=== PATIENT | male | born 1970 | race Caucasian/White ===

== ENCOUNTER 2020-07-28 15:06 | Emergency (ER) | payer MEDICAID ==
[~2020-07-28] VITALS: Ht 182.9 cm; Wt 84.0 kg
[~2020-07-28 15:06] MED LIST: AMPH20TA3 PO; OMEP40CA13 PO; ONDA4TAB12 PO
[2020-07-28] MEDS ORDERED: CefTRIAXone 250MG IM Kit w/LIDOcaine IM ONE (16:05)
[2020-07-28] MEDS ORDERED: azithromycin 250mg tablet PO ONE (16:05)
[2020-07-28 16:34] VITALS: BP 130/100
== END 2020-07-28 16:27 | disposition home or self-care (01) ==
LOC: ER 15:07
DX: Z20.2 Contact with and (suspected) exposure to infections with a predominantly sexual mode of transmission (principal); F12.90 Cannabis use, unspecified, uncomplicated; Z87.442 Personal history of urinary calculi; Z98.890 Other specified postprocedural states; Z79.899 Other long term (current) drug therapy
CPT/HCPCS: 96372; 99283; J0696

== ENCOUNTER 2021-03-12 16:47 | Inpatient (IN) | payer MEDICAID, OTHER ==
[~2021-03-12] VITALS: Ht 182.9 cm; Wt 81.8 kg
[~2021-03-12 16:47] MED LIST changes: -OMEP40CA13 PO; +OMEP40CA21 PO
[2021-03-12] MEDS ORDERED: normal saline 1000ML IV soln IVB ONE ×2 (18:30→22:25)
[2021-03-12] MEDS ORDERED: ondansetron/PF 4mg/2ml inj IV ONE (18:30)
[2021-03-12] MEDS ORDERED: vancomycin/NS 1 GM ADD-VANTAGE 250 ML IV ONE (18:30)
[2021-03-12] MEDS ORDERED: fentaNYL/PF 50MCG/1 ML 2ML syringe IV ONE (18:30)
[2021-03-12] MEDS ORDERED: CefTRIAXone 2gm/D5W 50ml BAG 50 ML IV ONE (18:30)
[2021-03-12] MEDS ORDERED: iohexol 300mg/ml 100ml inj. ONE (18:32)
[2021-03-12 19:49] LABS: PARTIAL THROMBOPLASTIN TIME 28 SECONDS (22-32)
[2021-03-12 19:50] LABS: BASOPHILS % (AUTO) 0.2 % (0-1); EOSINOPHILS % (AUTO) 0.2 % (0-6); HEMATOCRIT 39.7 % (42.0-52.0); HEMOGLOBIN 13.5 g/dl (14.0-17.9); LYMPHOCYTES # (AUTO) 1.3 X10'3 (1.1-4.8); LYMPHOCYTES % (AUTO) 11.3 % (21-51); MEAN CORPUSCULAR HEMOGLOBIN 29.4 PG (27.0-31.0); MEAN CORPUSCULAR HGB CONC 34.1 g/dL (33.0-36.5); MEAN CORPUSCULAR VOLUME 86.3 FL (78-98); MEAN PLATELET VOLUME 9.8 FL (7.4-10.4); MONOCYTES % (AUTO) 8.5 % (2-12); NEUTROPHILS # (AUTO) 9.5 X10'3 (1.8-7.7); NEUTROPHILS % (AUTO) 79.8 % (42-75); PLATELET COUNT 320 X10'3 (140-440); RED CELL DISTRIBUTION WIDTH 13.5 % (11.5-14.5); WHITE BLOOD COUNT 11.9 X10'3 (4.5-11.0)
[2021-03-12 19:52] LABS: ALANINE AMINOTRANSFERASE 71 U/L (12-78); ALBUMIN 3.4 G/DL (3.4-5.0); ALKALINE PHOSPHATASE 66 IU/L (46-116); ANION GAP 10 (8-16); ASPARTATE AMINO TRANSFERASE 108 U/L (10-37); BILIRUBIN,TOTAL 0.8 MG/DL (0.1-1.0); BLOOD UREA NITROGEN 12 MG/DL (7-18); CALCIUM 8.5 MG/DL (8.5-10.1); CHLORIDE 105 MMOL/L (99-107); GLUCOSE 105 MG/DL (70-104); POTASSIUM 3.5 MMOL/L (3.5-5.1); SODIUM 142 MMOL/L (135-145); TOTAL CARBON DIOXIDE 26.6 MMOL/L (24-32); TOTAL PROTEIN 6.9 G/DL (6.4-8.2); eGFR > 90 ML/MIN
[2021-03-12 20:27] LABS: TROPONIN I < 0.04 NG/ML (0.0-0.05)
[2021-03-12 20:29] LABS: CKMB RELATIVE INDEX 0.2 RATIO (0-2.5); CREATINE KINASE 4199 U/L (39-308)
[2021-03-12] MEDS ORDERED: temazepam 15mg capsule PO PRN (21:00)
[2021-03-12] MEDS ORDERED: magnesium hydroxide 30ml (MOM) UD suspension PO PRN (22:00)
[2021-03-12] MEDS ORDERED: HYDROcodone/acetaminophen 5mg/325mg tablet PO PRN (22:00)
[2021-03-12] MEDS ORDERED: diphenhydrAMINE 50 mg/ml inj IV PRN (22:00)
[2021-03-12] MEDS ORDERED: ondansetron/PF 4mg/2ml inj IV PRN (22:00)
[2021-03-12] MEDS ORDERED: HYDROmorphone inj. 0.5 MG/0.5 ML DISP.SYRIN IV PRN (22:00)
[2021-03-12] MEDS ORDERED: morphine 2 MG/ML inj. syringe IV PRN ×2 (22:00)
[2021-03-12] MEDS ORDERED: acetaminophen 325mg tablet PO PRN ×2 (22:00)
[2021-03-12] MEDS ORDERED: acetaminophen 650mg rectal suppository RC PRN (22:00)
[2021-03-12] MEDS ORDERED: bisacodyl 10mg suppository rectal RC PRN (22:00)
[2021-03-12] MEDS ORDERED: ondansetron 4mg rapidly disintigrating tab PO PRN (22:00)
[2021-03-12] MEDS ORDERED: mag hydrox/Alum hydrox/simeth 30ml oral suspension PO PRN (22:00)
[2021-03-12] MEDS ORDERED: diphenhydrAMINE 25mg capsule PO PRN (22:00)
[2021-03-12] MEDS ORDERED: tetanus & diphtheria toxoid (Td) vaccine 0.5ml IMVAC ONE (22:05)
[2021-03-12] MEDS ORDERED: naloxone 0.4 mg/ml inj IV PRN (22:15)
[2021-03-12 22:36] LABS: HEMOGLOBIN A1C 6.2 % (4.5-6.2)
[2021-03-12 22:40] LABS: MAGNESIUM 1.9 MG/DL (1.5-2.4); PHOSPHORUS 2.6 MG/DL (2.3-4.5)
[2021-03-12] MEDS: dextrose 5%-1/2 normal saline 1,000 ML IV SCH (23:30)
[2021-03-12 23:37] LABS: CLARITY,URINE CLEAR (Clear); COLOR,URINE YELLOW (Yellow); GLUCOSE, URINE NEGATIVE (Neg); KETONES,URINE >=80 mg/dl (Neg); LEUKOCYTE ESTERASE ,URINE NEGATIVE (Neg); NITRITES, URINE NEGATIVE (Neg); OCCULT BLOOD,URINE NEGATIVE (Neg); PROTEIN,URINE NEGATIVE (Neg); UROBILINOGEN,URINE 0.2 E.U/dL (0.2-1.0)
[2021-03-12 23:51] LABS: UA COLLECTION TYPE CLN CATCH MIDSTREAM
[2021-03-13] VITALS (8 sets, daily range): BP systolic 129–146; BP diastolic 84–100
[2021-03-13 00:21] LABS: URINE AMPHETAMINE SCREEN POSITIVE (Neg); URINE BARBITUATE SCREEN NEGATIVE (Neg); URINE BENZODIAZEPINES SCREEN NEGATIVE (Neg); URINE CANNABINOID SCREEN POSITIVE (Neg); URINE COCAINE SCREEN NEGATIVE (Neg); URINE METHADONE SCREEN NEGATIVE (Neg); URINE OPIATE SCREEN NEGATIVE (Neg); URINE PHENCYCLIDINE SCREEN NEGATIVE (Neg)
[2021-03-13] MEDS: sodium bicarbonate (8.4%) inj. 100 MEQ in sodium chloride 0.45% 1,000 ML IV SCH ×3 (00:57→20:10)
[2021-03-13] MEDS: morphine/NS 1 mg/ml 50ml CADD 50 ML IV SCH ×6 (01:59→23:30)
[2021-03-13] MEDS: piperacillin/tazo 4.5gm/100ml 100 ML IV SCH ×4 (02:31→23:14)
[2021-03-13] MEDS: vancomycin/NS 1 GM ADD-VANTAGE 250 ML IV SCH ×3 (03:00→19:00)
[2021-03-13] MEDS ORDERED: ondansetron/PF 4mg/2ml inj IV ONE (03:20)
--- NOTE | 2021-03-13 04:08 | NUR ---
Patient vomiting and complaint of itching. One time order for zofran 8 mg and benadryl for itching.
[2021-03-13 04:14] LABS: BASOPHILS % (AUTO) 0.3 % (0-1); EOSINOPHILS # (AUTO) 0.1 X10'3 (0-0.9); EOSINOPHILS % (AUTO) 0.5 % (0-6); HEMATOCRIT 38.6 % (42.0-52.0); HEMOGLOBIN 12.9 g/dl (14.0-17.9); LYMPHOCYTES # (AUTO) 1.5 X10'3 (1.1-4.8); LYMPHOCYTES % (AUTO) 14.1 % (21-51); MEAN CORPUSCULAR HEMOGLOBIN 29.5 PG (27.0-31.0); MEAN CORPUSCULAR HGB CONC 33.4 g/dL (33.0-36.5); MEAN CORPUSCULAR VOLUME 88.3 FL (78-98); MEAN PLATELET VOLUME 9.5 FL (7.4-10.4); MONOCYTES % (AUTO) 9.2 % (2-12); NEUTROPHILS # (AUTO) 8.1 X10'3 (1.8-7.7); NEUTROPHILS % (AUTO) 75.9 % (42-75); PLATELET COUNT 299 X10'3 (140-440); RED BLOOD COUNT 4.37 X10'6 (4.70-6.10); RED CELL DISTRIBUTION WIDTH 13.6 % (11.5-14.5); WHITE BLOOD COUNT 10.6 X10'3 (4.5-11.0)
[2021-03-13 04:50] LABS: ALANINE AMINOTRANSFERASE 74 U/L (12-78); ALBUMIN 3.1 G/DL (3.4-5.0); ALBUMIN/GLOBULIN RATIO 0.9 (1.1-1.5); ALKALINE PHOSPHATASE 57 IU/L (46-116); ANION GAP 9 (8-16); ASPARTATE AMINO TRANSFERASE 106 U/L (10-37); BILIRUBIN,TOTAL 0.8 MG/DL (0.1-1.0); BLOOD UREA NITROGEN 8 MG/DL (7-18); BUN/CREATININE RATIO 11.4 (5.4-32.0); CALCIUM 7.8 MG/DL (8.5-10.1); CHLORIDE 105 MMOL/L (99-107); CHOL/HDL RATIO 2.4 (0.00-4.99); CHOLESTEROL 135 MG/DL (0-200); GLUCOSE 136 MG/DL (70-104); HDL CHOLESTEROL 56 MG/DL (35-60); LDL CHOLESTEROL 62 MG/DL (50-100); POTASSIUM 3.4 MMOL/L (3.5-5.1); SODIUM 141 MMOL/L (135-145); TOTAL CARBON DIOXIDE 26.8 MMOL/L (24-32); TOTAL PROTEIN 6.4 G/DL (6.4-8.2); TRIGLYCERIDES 106 MG/DL (20-135); eGFR > 90 ML/MIN
[2021-03-13] MEDS: pantoprazole 40 MG vial IV SCH (08:57)
[2021-03-13] MEDS: docusate sod 100mg capsule PO SCH ×2 (08:57→19:56)
[2021-03-13] MEDS: dextrose 5%-1/2 normal saline 1,000 ML IV SCH ×2 (08:58→15:24)
[2021-03-13] MEDS ORDERED: potassium Cl 20 mEq SR tablet PO PRN ×2 (10:25)
[2021-03-13] MEDS ORDERED: potassium Cl 40MEQ/1/2NS 520ml 520 ML IV PRN (10:25)
[2021-03-13] MEDS ORDERED: magnesium Cl slow-release 64mg tablet PO PRN (10:25)
[2021-03-13] MEDS ORDERED: magnesium 4gm in 100ml NS 100 ML IV PRN (10:25)
--- NOTE | 2021-03-13 11:14 | NUR ---
gave report to cindy sanchez, pt transfered in zero distress
--- NOTE | 2021-03-13 11:20 | NUR ---
Received reprt from Jenny RN in ED. Pt arrived via gurney ans transferred to bed. Ptwith officer in attendence verbalized understanding of POC.
--- NOTE | 2021-03-13 11:40 | NUR ---
Pt taken to OR via bed officer accompanied him.
[2021-03-13] MEDS ORDERED: ringers solution, lacted 1,000 ML IV SCH (11:50)
[2021-03-13] MEDS ORDERED: fentaNYL/PF 50MCG/1 ML 2ML syringe IV PRN ×2 (11:50)
[2021-03-13] MEDS ORDERED: hydrALAZINE 20mg/ml inj. IV PRN (11:50)
[2021-03-13] MEDS ORDERED: morphine 4 MG/ML inj SYRINge IV PRN (11:50)
[2021-03-13] MEDS ORDERED: morphine 2 MG/ML inj. syringe IV PRN (11:50)
[2021-03-13] MEDS ORDERED: ondansetron/PF 4mg/2ml inj IV PRN (11:50)
[2021-03-13] MEDS ORDERED: labetalol 20mg/4ml (5mg/ml) syringe IV PRN (11:50)
[2021-03-13] MEDS ORDERED: midazolam 1 mg/ML 2ml injection ONE (11:53)
[2021-03-13] MEDS ORDERED: fentaNYL/PF 50MCG/1 ML 2ML syringe ONE (11:53)
[2021-03-13] MEDS ORDERED: LIDOcaine 2% (20mg/ml) 5ml vial ONE (11:54)
[2021-03-13] MEDS ORDERED: ondansetron/PF 4mg/2ml inj ONE (11:54)
[2021-03-13] MEDS ORDERED: dexamethasone sod phosphate 4mg/ml inj. ONE (11:54)
[2021-03-13] MEDS ORDERED: propofol inj 20 ML IV ONE (11:54)
--- NOTE | 2021-03-13 12:50 | NUR ---
Received from OR via BED, accompanied by Anesthesiologist and report given by Anesthesiologist. PATIENT WAKING UP, NO S/S OF PAIN, V/S WNL, SCD ON, 20G TO LUE, .WV AT 125 CONTINOUS SUCTION TO RIGHT ARM W/ NO LEAKS DETECTED CDI. GUARD AT BEDSIDE
--- NOTE | 2021-03-13 13:25 | NUR ---
Pt returned via bed from recovery. VSS, call light in reach. Officer in room given a call light as well. WV to right upper arm intact w/o leak. Pt remains sleepy but able to hold conversation. CADD restarted , pt demonstrates appropriate use.
--- NOTE | 2021-03-13 13:30 | NUR ---
patient a&ox4, denies PAIN, V/S WNL, SCD ON, 20G TO LUE, .WV AT 125 CONTINOUS SUCTION TO RIGHT ARM W/ NO LEAKS DETECTED CDI. GUARD AT BEDSIDE. patient taken to [facility] with all belongings and hooked up to monitors in rooma nd report given to cindy sanchez who has taken over patient care
[2021-03-13] MEDS ORDERED: VANCOMYCIN LEVEL IV ONE (18:30)
[2021-03-13] MEDS: lactobacillus rhamnosus 10,000 MMU CELLS/CAPSULE PO SCH (20:00)
[2021-03-13] MEDS: K and/or MAG REPLACEMENT MC SCH (20:00)
[2021-03-13 20:39] LABS: ABG BASE EXCESS 2.6 mmol/L (-2.0-2.0); ABG HCO3 27.3 mmol/L (22.0-26.0); ABG OXYGEN SATURATION 94.7 % (94-97); ABG PCO2 (T) 41.5 mmHg (35.0-48.0); ABG PO2 (T) 70.8 mmHg (75.0-100.0); ALLEN'S TEST POSITIVE; FCOHb 0.4 % (0.0-3.9); FMetHb 0.3 % (0.0-1.5); PATIENT TEMPERATURE 36.5; TOTAL HEMOGLOBIN 13.4 G/dl (14.0-18.0)
--- NOTE | 2021-03-14 01:03 | NUR ---
late entry. assessment completed earlier at 1999 but charted later.
[2021-03-14] MEDS: dextrose 5%-1/2 normal saline 1,000 ML IV SCH ×3 (01:26→20:23)
[2021-03-14] MEDS: morphine/NS 1 mg/ml 50ml CADD 50 ML IV SCH ×10 (02:08→23:00)
[2021-03-14] MEDS: CADD PCA waste documentation MC PRN (04:02)
[2021-03-14] MEDS: vancomycin/NS 1 GM ADD-VANTAGE 250 ML IV SCH (04:03)
[2021-03-14 06:00] LABS: BASOPHILS % (AUTO) 0.3 % (0-1); EOSINOPHILS % (AUTO) 0.1 % (0-6); HEMATOCRIT 36.7 % (42.0-52.0); HEMOGLOBIN 12.2 g/dl (14.0-17.9); LYMPHOCYTES # (AUTO) 1.7 X10'3 (1.1-4.8); LYMPHOCYTES % (AUTO) 12.8 % (21-51); MEAN CORPUSCULAR HEMOGLOBIN 28.9 PG (27.0-31.0); MEAN CORPUSCULAR HGB CONC 33.1 g/dL (33.0-36.5); MEAN CORPUSCULAR VOLUME 87.2 FL (78-98); MEAN PLATELET VOLUME 9.2 FL (7.4-10.4); MONOCYTES # (AUTO) 1.1 X10'3 (0-0.9); MONOCYTES % (AUTO) 7.9 % (2-12); NEUTROPHILS # (AUTO) 10.7 X10'3 (1.8-7.7); NEUTROPHILS % (AUTO) 78.9 % (42-75); PLATELET COUNT 313 X10'3 (140-440); RED BLOOD COUNT 4.21 X10'6 (4.70-6.10); RED CELL DISTRIBUTION WIDTH 13.4 % (11.5-14.5); WHITE BLOOD COUNT 13.6 X10'3 (4.5-11.0)
--- NOTE | 2021-03-14 06:33 | NUR ---
Patient in room [facility]. I have received report from Marge dental coordinator and had the opportunity to ask questions and assume patient care.
[2021-03-14 06:34] LABS: ALANINE AMINOTRANSFERASE 69 U/L (12-78); ALBUMIN 2.9 G/DL (3.4-5.0); ALBUMIN/GLOBULIN RATIO 0.9 (1.1-1.5); ALKALINE PHOSPHATASE 51 IU/L (46-116); ANION GAP 7 (8-16); ASPARTATE AMINO TRANSFERASE 75 U/L (10-37); BILIRUBIN,TOTAL 0.8 MG/DL (0.1-1.0); BLOOD UREA NITROGEN 5 MG/DL (7-18); BUN/CREATININE RATIO 7.4 (5.4-32.0); CALCIUM 8.4 MG/DL (8.5-10.1); CHLORIDE 107 MMOL/L (99-107); CREATININE 0.68 MG/DL (0.60-1.10); GLUCOSE 137 MG/DL (70-104); MAGNESIUM 1.8 MG/DL (1.5-2.4); PHOSPHORUS 3.3 MG/DL (2.3-4.5); POTASSIUM 3.5 MMOL/L (3.5-5.1); SODIUM 143 MMOL/L (135-145); TOTAL CARBON DIOXIDE 29.1 MMOL/L (24-32); TOTAL PROTEIN 6.3 G/DL (6.4-8.2); eGFR > 90 ML/MIN
[2021-03-14 06:41] LABS: CREATINE KINASE 2411 U/L (39-308)
[2021-03-14] MEDS: sodium bicarbonate (8.4%) inj. 100 MEQ in sodium chloride 0.45% 1,000 ML IV SCH ×2 (07:10→17:25)
[2021-03-14 08:00] VITALS: BP 129/87
[2021-03-14] MEDS: K and/or MAG REPLACEMENT MC SCH ×2 (08:00→20:00)
[2021-03-14] MEDS: docusate sod 100mg capsule PO SCH ×2 (08:49→20:29)
[2021-03-14] MEDS: lactobacillus rhamnosus 10,000 MMU CELLS/CAPSULE PO SCH ×2 (08:49→20:29)
[2021-03-14] MEDS: pantoprazole 40 MG vial IV SCH (08:49)
[2021-03-14] MEDS: piperacillin/tazo 4.5gm/100ml 100 ML IV SCH ×2 (08:49→17:08)
[2021-03-14] MEDS: heparin, porcine 5000 units/ml vial SQ SCH ×2 (08:50→20:29)
[2021-03-14] MEDS ORDERED: VANCOMYCIN LEVEL IV ONE (10:30)
[2021-03-14 11:00] VITALS: BP 149/91
--- NOTE | 2021-03-14 12:28 | NUR ---
Initial: Pt admitted w/ dog bite to R arm, s/p I&D 03/13 per EMR. Photos of wounds reviewed. Pt is able to eat well, consuming 100% of meals on Regular diet. Pt may benefit from Jeison shake to aid wound healing. No N/V/D noted, no documented LBM. Will continue to monitor. Recommend 1. Continue Regular diet as tolerated 2. Jeison Shake BID LD to provide 320kcals and 8g protein if consumed 100% 3. Bowel care per rx 4. Weekly wts Addendum: 03/14/21 at [address] Amended: Links added.
--- NOTE | 2021-03-14 13:36 | NUR ---
WOUND VAC EDUCATION PROVIDED BY WOUND CARE 1. Patient instructed to call the Wound Center or their Home Health Agency immediately if: * They notice a change in the color or amount of the fluid in the canister. * Their wound looks more red than usual or has a foul smell. * The skin around their wound looks reddened or irritated. * The dressing feels loose or appears to be loose. * They experience any increase or changes in their pain. * The alarm will not turn off. 2. Patient instructed that they should not be disconnected from suction for more than 2 hours at a time. * If they are not able to get the suction back on, they need to remove the dressing and take all of the foam out of the wound. * Then moisten sterile gauze with normal saline and place on/in the wound. * Change the dressing once a day until arrangements have been made to replace the wound vac dressing. 3. Patient instructed to turn the wound vac machine OFF and call 911 or go to the ED immediately if their canister fills rapidly with blood. 4. If any of these occur while in the hospital tell a nurse immediately. Addendum: 03/14/21 at 1336 by Allison Ortega RN Amended: Links added.
[2021-03-14] MEDS: VANCOmycin 1250MG/NS 250ml Bag 250 ML IV SCH ×2 (14:18→20:30)
--- NOTE | 2021-03-14 15:00 | NUR ---
Pharmacy added some needed language to CADD pump setting orders therefore old order was DC'ed. new order input it by pharmacy. New label was placed on the CADD pump per pharmacy. New label had to be rescanned. Charge Maggie was aware of the events so she co sign with me. When it was scanned, two CADD settings were not entered and once it was scanned I was unable to entered it. The missing settings are 1200 - Residual 39.0, given/attempts 58/104, 58mh given. 1400 residual 31mg, given/attempts 66/119, given 66mg. 1600 23mg residual, given/attempts 71/140 and given 74mg. NOC nurse aware of the missing numbers.
[2021-03-14 18:00] VITALS: BP 138/91
[2021-03-14 18:30] VITALS: BP 138/91
[2021-03-14 23:38] VITALS: BP 145/78
[2021-03-15] MEDS: piperacillin/tazo 4.5gm/100ml 100 ML IV SCH ×4 (00:20→23:17)
[2021-03-15] MEDS: morphine/NS 1 mg/ml 50ml CADD 50 ML IV SCH ×8 (01:00→15:00)
[2021-03-15] MEDS: VANCOmycin 1250MG/NS 250ml Bag 250 ML IV SCH ×3 (03:56→19:31)
[2021-03-15] MEDS: CADD PCA waste documentation MC PRN ×2 (04:06→16:10)
[2021-03-15 06:43] LABS: BASOPHILS # (AUTO) 0.1 X10'3 (0-0.2); BASOPHILS % (AUTO) 0.5 % (0-1); EOSINOPHILS # (AUTO) 0.2 X10'3 (0-0.9); EOSINOPHILS % (AUTO) 1.6 % (0-6); HEMATOCRIT 38.4 % (42.0-52.0); HEMOGLOBIN 12.9 g/dl (14.0-17.9); LYMPHOCYTES # (AUTO) 2.5 X10'3 (1.1-4.8); LYMPHOCYTES % (AUTO) 20.5 % (21-51); MEAN CORPUSCULAR HEMOGLOBIN 29.5 PG (27.0-31.0); MEAN CORPUSCULAR HGB CONC 33.7 g/dL (33.0-36.5); MEAN CORPUSCULAR VOLUME 87.7 FL (78-98); MEAN PLATELET VOLUME 8.8 FL (7.4-10.4); MONOCYTES # (AUTO) 1.1 X10'3 (0-0.9); MONOCYTES % (AUTO) 8.7 % (2-12); NEUTROPHILS # (AUTO) 8.5 X10'3 (1.8-7.7); NEUTROPHILS % (AUTO) 68.7 % (42-75); PLATELET COUNT 332 X10'3 (140-440); RED BLOOD COUNT 4.38 X10'6 (4.70-6.10); RED CELL DISTRIBUTION WIDTH 13.6 % (11.5-14.5); WHITE BLOOD COUNT 12.4 X10'3 (4.5-11.0)
--- NOTE | 2021-03-15 06:55 | NUR ---
Problems reprioritized. Patient report given, questions answered & plan of care reviewed with JARON. Addendum: 03/15/21 at 0655 by Werner Mullins RN Amended: Links added.
--- NOTE | 2021-03-15 07:04 | NUR ---
Patient in room [facility]. I have received report from Johny GALLEGOS and had the opportunity to ask questions and assume patient care.
[2021-03-15 07:22] LABS: ALANINE AMINOTRANSFERASE 66 U/L (12-78); ALBUMIN 2.9 G/DL (3.4-5.0); ALBUMIN/GLOBULIN RATIO 0.8 (1.1-1.5); ALKALINE PHOSPHATASE 61 IU/L (46-116); ANION GAP 9 (8-16); ASPARTATE AMINO TRANSFERASE 50 U/L (10-37); BLOOD UREA NITROGEN 5 MG/DL (7-18); BUN/CREATININE RATIO 6.3 (5.4-32.0); CALCIUM 8.3 MG/DL (8.5-10.1); CHLORIDE 108 MMOL/L (99-107); GLUCOSE 111 MG/DL (70-104); MAGNESIUM 1.8 MG/DL (1.5-2.4); PHOSPHORUS 4.3 MG/DL (2.3-4.5); POTASSIUM 3.7 MMOL/L (3.5-5.1); SODIUM 144 MMOL/L (135-145); TOTAL CARBON DIOXIDE 26.6 MMOL/L (24-32); TOTAL PROTEIN 6.4 G/DL (6.4-8.2); eGFR > 90 ML/MIN
[2021-03-15 07:28] LABS: CREATINE KINASE 1130 U/L (39-308)
[2021-03-15 08:00] VITALS: BP 154/96
[2021-03-15] MEDS: K and/or MAG REPLACEMENT MC SCH ×2 (08:00→19:32)
[2021-03-15] MEDS: lactobacillus rhamnosus 10,000 MMU CELLS/CAPSULE PO SCH ×2 (10:18→19:32)
[2021-03-15] MEDS: pantoprazole 40mg Tablet.DR PO SCH (10:18)
[2021-03-15] MEDS: dextrose 5%-1/2 normal saline 1,000 ML IV SCH ×2 (10:18→23:18)
[2021-03-15] MEDS: docusate sod 100mg capsule PO SCH ×2 (10:19→19:32)
[2021-03-15] MEDS: heparin, porcine 5000 units/ml vial SQ SCH ×2 (10:27→19:32)
[2021-03-15] MEDS ORDERED: VANCOMYCIN LEVEL IV ONE (11:30)
[2021-03-15 12:00] VITALS: BP 148/97
--- NOTE | 2021-03-15 15:32 | NUR ---
PAGER ID: [phone] MESSAGE: Andres Surg [phone] Re: Gabriel, [facility] can we DC Morphine cadd and put patient on some PO Pain medications
[2021-03-15 18:00] VITALS: BP 152/104
--- NOTE | 2021-03-15 18:25 | NUR ---
Patient in room [facility]. I have received report from ROSY Campos and had the opportunity to ask questions and assume patient care.
--- NOTE | 2021-03-15 19:07 | NUR ---
Problems reprioritized. Patient report given, questions answered & plan of care reviewed with Lola GALLEGOS.
[2021-03-15] MEDS: HYDROcodone/acetaminophen 10/325mg tab PO PRN (23:17)
[2021-03-16] VITALS: BP 141/102
[2021-03-16] MEDS: VANCOmycin 1250MG/NS 250ml Bag 250 ML IV SCH ×3 (04:30→20:29)
[2021-03-16] MEDS: HYDROcodone/acetaminophen 10/325mg tab PO PRN ×4 (05:30→20:33)
--- NOTE | 2021-03-16 06:19 | NUR ---
Problems reprioritized. Patient report given, questions answered & plan of care reviewed with ROSY Campos.
--- NOTE | 2021-03-16 07:00 | NUR ---
Patient in room [facility]. I have received report from Lola GALLEGOS and had the opportunity to ask questions and assume patient care.
[2021-03-16 07:42] LABS: BASOPHILS # (AUTO) 0.1 X10'3 (0-0.2); BASOPHILS % (AUTO) 0.7 % (0-1); EOSINOPHILS # (AUTO) 0.3 X10'3 (0-0.9); EOSINOPHILS % (AUTO) 2.3 % (0-6); HEMOGLOBIN 12.7 g/dl (14.0-17.9); LYMPHOCYTES # (AUTO) 2.2 X10'3 (1.1-4.8); LYMPHOCYTES % (AUTO) 18.7 % (21-51); MEAN CORPUSCULAR HEMOGLOBIN 29.4 PG (27.0-31.0); MEAN CORPUSCULAR HGB CONC 33.4 g/dL (33.0-36.5); MEAN CORPUSCULAR VOLUME 87.9 FL (78-98); MEAN PLATELET VOLUME 9.4 FL (7.4-10.4); MONOCYTES # (AUTO) 1.1 X10'3 (0-0.9); MONOCYTES % (AUTO) 9.3 % (2-12); PLATELET COUNT 343 X10'3 (140-440); RED BLOOD COUNT 4.32 X10'6 (4.70-6.10); RED CELL DISTRIBUTION WIDTH 13.6 % (11.5-14.5); WHITE BLOOD COUNT 11.5 X10'3 (4.5-11.0)
[2021-03-16] MEDS: docusate sod 100mg capsule PO SCH ×2 (08:00→20:32)
[2021-03-16] MEDS: K and/or MAG REPLACEMENT MC SCH ×2 (08:00→20:00)
[2021-03-16 08:01] VITALS: BP 131/83
[2021-03-16 08:07] LABS: ALANINE AMINOTRANSFERASE 59 U/L (12-78); ALBUMIN 2.9 G/DL (3.4-5.0); ALBUMIN/GLOBULIN RATIO 0.9 (1.1-1.5); ALKALINE PHOSPHATASE 61 IU/L (46-116); ANION GAP 9 (8-16); ASPARTATE AMINO TRANSFERASE 37 U/L (10-37); BILIRUBIN,TOTAL 0.8 MG/DL (0.1-1.0); BLOOD UREA NITROGEN 9 MG/DL (7-18); BUN/CREATININE RATIO 10.5 (5.4-32.0); CALCIUM 8.4 MG/DL (8.5-10.1); CHLORIDE 106 MMOL/L (99-107); CREATINE KINASE 621 U/L (39-308); CREATININE 0.86 MG/DL (0.60-1.10); GLUCOSE 96 MG/DL (70-104); PHOSPHORUS 4.1 MG/DL (2.3-4.5); POTASSIUM 3.5 MMOL/L (3.5-5.1); SODIUM 143 MMOL/L (135-145); TOTAL CARBON DIOXIDE 27.7 MMOL/L (24-32); TOTAL PROTEIN 6.3 G/DL (6.4-8.2); eGFR > 90 ML/MIN
[2021-03-16] MEDS: lactobacillus rhamnosus 10,000 MMU CELLS/CAPSULE PO SCH ×2 (10:40→20:32)
[2021-03-16] MEDS: pantoprazole 40mg Tablet.DR PO SCH (10:40)
[2021-03-16] MEDS: heparin, porcine 5000 units/ml vial SQ SCH ×2 (10:43→20:35)
[2021-03-16] MEDS: piperacillin/tazo 4.5gm/100ml 100 ML IV SCH ×2 (10:43→16:56)
[2021-03-16 13:05] VITALS: BP 159/100
--- NOTE | 2021-03-16 17:40 | NUR ---
Updated Christal at the residential with updates on the patient care and projected discharge.
--- NOTE | 2021-03-16 19:14 | NUR ---
Problems reprioritized. Patient report given, questions answered & plan of care reviewed with Bipin GALLEGOS.
--- NOTE | 2021-03-16 19:15 | NUR ---
Patient in room [facility]. I have received report from JARON GALLEGOS and had the opportunity to ask questions and assume patient care.
[2021-03-16 20:00] VITALS: BP 145/76
[2021-03-17] VITALS: BP 128/73
[2021-03-17] MEDS: piperacillin/tazo 4.5gm/100ml 100 ML IV SCH ×2 (00:43→08:15)
[2021-03-17] MEDS: HYDROcodone/acetaminophen 10/325mg tab PO PRN ×2 (00:47→04:52)
[2021-03-17] MEDS: VANCOmycin 1250MG/NS 250ml Bag 250 ML IV SCH (04:53)
--- NOTE | 2021-03-17 06:30 | NUR ---
Problems reprioritized. Patient report given, questions answered & plan of care reviewed with IKER GALLEGOS.
[2021-03-17 07:00] VITALS: BP 168/98
[2021-03-17 07:37] LABS: BASOPHILS # (AUTO) 0.1 X10'3 (0-0.2); BASOPHILS % (AUTO) 0.9 % (0-1); EOSINOPHILS # (AUTO) 0.3 X10'3 (0-0.9); EOSINOPHILS % (AUTO) 2.9 % (0-6); HEMATOCRIT 37.5 % (42.0-52.0); HEMOGLOBIN 12.9 g/dl (14.0-17.9); LYMPHOCYTES # (AUTO) 2.1 X10'3 (1.1-4.8); LYMPHOCYTES % (AUTO) 20.6 % (21-51); MEAN CORPUSCULAR HEMOGLOBIN 29.7 PG (27.0-31.0); MEAN CORPUSCULAR HGB CONC 34.3 g/dL (33.0-36.5); MEAN CORPUSCULAR VOLUME 86.6 FL (78-98); MONOCYTES # (AUTO) 0.9 X10'3 (0-0.9); MONOCYTES % (AUTO) 8.5 % (2-12); NEUTROPHILS # (AUTO) 6.9 X10'3 (1.8-7.7); NEUTROPHILS % (AUTO) 67.1 % (42-75); PLATELET COUNT 367 X10'3 (140-440); RED BLOOD COUNT 4.33 X10'6 (4.70-6.10); RED CELL DISTRIBUTION WIDTH 13.6 % (11.5-14.5); WHITE BLOOD COUNT 10.3 X10'3 (4.5-11.0)
[2021-03-17] MEDS: K and/or MAG REPLACEMENT MC SCH (08:00)
[2021-03-17 08:09] LABS: ALANINE AMINOTRANSFERASE 52 U/L (12-78); ALBUMIN 2.9 G/DL (3.4-5.0); ALBUMIN/GLOBULIN RATIO 0.9 (1.1-1.5); ALKALINE PHOSPHATASE 63 IU/L (46-116); ANION GAP 10 (8-16); ASPARTATE AMINO TRANSFERASE 31 U/L (10-37); BILIRUBIN,TOTAL 0.8 MG/DL (0.1-1.0); BLOOD UREA NITROGEN 12 MG/DL (7-18); BUN/CREATININE RATIO 12.1 (5.4-32.0); CALCIUM 8.4 MG/DL (8.5-10.1); CHLORIDE 107 MMOL/L (99-107); CREATINE KINASE 348 U/L (39-308); CREATININE 0.99 MG/DL (0.60-1.10); GLUCOSE 97 MG/DL (70-104); MAGNESIUM 2.1 MG/DL (1.5-2.4); PHOSPHORUS 3.2 MG/DL (2.3-4.5); POTASSIUM 3.6 MMOL/L (3.5-5.1); SODIUM 144 MMOL/L (135-145); TOTAL CARBON DIOXIDE 27.1 MMOL/L (24-32); TOTAL PROTEIN 6.3 G/DL (6.4-8.2); eGFR 80 ML/MIN
[2021-03-17] MEDS: lactobacillus rhamnosus 10,000 MMU CELLS/CAPSULE PO SCH (08:13)
[2021-03-17] MEDS: pantoprazole 40mg Tablet.DR PO SCH (08:13)
[2021-03-17] MEDS: docusate sod 100mg capsule PO SCH (08:13)
[2021-03-17] MEDS: heparin, porcine 5000 units/ml vial SQ SCH (08:14)
[2021-03-17] MEDS ORDERED: SULF1TAB49 PO (09:56)
--- NOTE | 2021-03-17 10:21 | NUR ---
Bekah from [facility] phoned to inform Dr Barnhart was contacted on WV removal. He approved W-D dressing change BID. Pt will be DC back to [facility] to continue wound care.
== END 2021-03-17 11:05 | DRG 580 ==
LOC: EEVIPCON 16:47 → ER 16:47 → ED HOLD 18:07 → UNDOADMIN 21:56 → ED HOLD 21:56 → SUR 3N 03-13 11:20
PROVIDERS: ADMIT Family Medicine; ATTEND Family Medicine
PROC: 3E0234Z Introduction of Serum, Toxoid and Vaccine into Muscle, Percutaneous Approach (ICD-10-PCS; 2021-03-12)
PROC: BW251ZZ Computerized Tomography (CT Scan) of Chest, Abdomen and Pelvis using Low Osmolar Contrast (ICD-10-PCS; 2021-03-12)
PROC: 0KB70ZZ Excision of Right Upper Arm Muscle, Open Approach (ICD-10-PCS; principal; 2021-03-13 11:59)
DX: S41.151A Open bite of right upper arm, initial encounter (principal); L03.113 Cellulitis of right upper limb; S22.41XA Multiple fractures of ribs, right side, initial encounter for closed fracture; N39.0 Urinary tract infection, site not specified; D64.9 Anemia, unspecified; E86.0 Dehydration; E87.6 Hypokalemia; F12.10 Cannabis abuse, uncomplicated; F90.9 Attention-deficit hyperactivity disorder, unspecified type; Z20.822 Contact with and (suspected) exposure to COVID-19; I10 Essential (primary) hypertension; K76.89 Other specified diseases of liver; N28.1 Cyst of kidney, acquired; F15.90 Other stimulant use, unspecified, uncomplicated; S00.03XA Contusion of scalp, initial encounter; T79.6XXA Traumatic ischemia of muscle, initial encounter; Z87.442 Personal history of urinary calculi; Z23 Encounter for immunization; W54.0XXA Bitten by dog, initial encounter; Y93.89 Activity, other specified; Y92.89 Other specified places as the place of occurrence of the external cause; Y99.8 Other external cause status; Z79.899 Other long term (current) drug therapy; Z71.51 Drug abuse counseling and surveillance of drug abuser
CPT/HCPCS: 99285; Z7506; 36415; 36600; 71260; 74177; 80053; 80061; 80202; 80305; 81003; 82550; 82553; 82803; 83036; 83735; 83880; 84100; 84443; 84484; 85018; 85025; 85610; 85730; 86885; 86900; 86901; 87081; 87635; 90715; 93005; A4618; A6258; A6455; A6550; A7000; C9113; G0378; J0696; J1100; J1200; J1644; J2001; J2250; J2270; J2405; J2543; J2704; J3010; J3370; J7030; Q9967

== ENCOUNTER 2021-03-22 11:40 | Emergency (ER) | payer MEDICAID, OTHER ==
[~2021-03-22] VITALS: Ht 182.9 cm; Wt 78.2 kg
[~2021-03-22 11:40] MED LIST changes: -AMPH20TA3 PO; -ONDA4TAB12 PO; +SULF1TAB49 PO
[2021-03-22 12:16] VITALS: BP 144/93
[2021-03-22] MEDS ORDERED: IBUP-1984 PO (13:07)
[2021-03-22] MEDS ORDERED: SULF1TAB45 PO (13:07)
== END 2021-03-22 13:27 | disposition home or self-care (01) ==
LOC: ER 11:41
DX: L03.113 Cellulitis of right upper limb (principal); F12.90 Cannabis use, unspecified, uncomplicated; F15.90 Other stimulant use, unspecified, uncomplicated; Z87.442 Personal history of urinary calculi; Z98.890 Other specified postprocedural states; Z79.2 Long term (current) use of antibiotics; Z79.899 Other long term (current) drug therapy
CPT/HCPCS: 99283

== ENCOUNTER 2023-09-30 14:02 | Emergency (ER) | payer MEDICAID ==
[~2023-09-30] VITALS: Ht 182.9 cm; Wt 79.1 kg
[~2023-09-30 14:02] MED LIST changes: -SULF1TAB49 PO
[2023-09-30 14:15] VITALS: BP 140/93; PULSE 115; TEMP 98.8; O2SAT 96
[2023-09-30] MEDS ORDERED: ketorolac tromethamine 15mg/ml inj. IM ONE (14:35)
[2023-09-30 14:43] VITALS: RESP 18
[2023-09-30] MEDS: ketorolac trometh inj. 60 MG/2 ML VIAL IM ONE (14:43)
[2023-09-30] MEDS ORDERED: ACET-1008 PO (14:43)
[2023-09-30] MEDS ORDERED: AMOX-580 PO (14:43)
[2023-09-30] MEDS: HYDROcodone/acetaminophen 5mg/325mg tablet PO ONE (14:43)
== END 2023-09-30 14:56 | disposition home or self-care (01) ==
LOC: ER 14:02
DX: K04.7 Periapical abscess without sinus (principal); F12.90 Cannabis use, unspecified, uncomplicated; F15.90 Other stimulant use, unspecified, uncomplicated; Z79.899 Other long term (current) drug therapy
CPT/HCPCS: 96372; 99283; J1885